=== PATIENT | male | born 1990 | race American Indian/Alaskan Native ===

== ENCOUNTER 2017-06-13 09:29 | Emergency (ER) | payer OTHER ==
[2017-06-13 12:36] VITALS: BP 128/81
--- NOTE | 2017-06-13 13:00 | Emergency Department Report ---
ED Laceration HPI - HPI Chief Complaint: Wound/Laceration Stated Complaint: MOUTH BUSTED OPEN Time Seen by Provider: 06/13/17 12:26 Severity: mild Laceration Symptoms: No Foreign Body Sensation, No Numbness, No Weakness, No Pain Other History: 26-year-old male past medical history anxiety presents with complaint of sustaining laceration below his lower lip while at work today. 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 Patient has a small less than 0.5 cm horizontal laceration below middle aspect of the lower lip. Patient is able to speak in full sentences denies any injuries to any other body parts denies any loss of consciousness associated with the incident. Occurred a few hours ago. Patient's tetanus vaccination is up-to-date as per patient. No active bleeding but there is a small scab at site of laceration. Patient states he had some bleeding inside his mouth as well. ED Review of Systems ROS: Stated complaint: MOUTH BUSTED OPEN Other details as noted in HPI Constitutional: denies: chills, fever Eyes: denies: eye pain, eye discharge, vision change ENT: denies: ear pain, throat pain Respiratory: denies: cough, shortness of breath, wheezing Cardiovascular: denies: chest pain, palpitations Endocrine: no symptoms reported Gastrointestinal: denies: abdominal pain, nausea, diarrhea Genitourinary: denies: urgency, dysuria Musculoskeletal: denies: back pain, joint swelling, arthralgia Skin: denies: rash, lesions Neurological: denies: headache, weakness, paresthesias Psychiatric: denies: anxiety, depression Hematological/Lymphatic: denies: easy bleeding, easy bruising ED Past Medical Hx - Past Medical History Previous Medical History?: No - Surgical History Past Surgical History?: No - Social History Smoking Status: Never Smoker Substance Use Type: None - Medications Home Medications: Home Medications Medication Instructions Recorded Confirmed Last Taken Type Bacitracin Zinc Oint [Antibiotic 1 applicatio TP TID #1 tube 06/13/17 Unknown Rx Oint] Cephalexin [Keflex] 500 mg PO Q12HR #14 cap 06/13/17 Unknown Rx Ibuprofen [Motrin] 600 mg PO Q8H PRN #30 tablet 06/13/17 Unknown Rx Laceration Physical Exam - Exam General: Vital signs noted. No distress. Alert and acting appropriately. Laceration Location: Head (less than 0.5cm laceration, open below lower lip) Full Body Front + Back: 1 - lac here less than 0.5cm, open, gaping Laceration Exam: No Foreign Body, No Exposed Tendon, Vessel, or Nerve, No Tendon Injury, No Normal Distal CMS ED Course Vital Signs 06/13/17 06/13/17 10:02 12:36 Temperature 99.1 F Pulse Rate 59 L 78 Respiratory 16 18 Rate Blood Pressure 102/69 Blood Pressure 128/81 [Right] O2 Sat by Pulse 99 100 Oximetry ED Medical Decision Making - Medical Decision Making A/P: Facial laceration intraoral laceration 1-on clinical exam but likely occurred is that patient's lower teeth/incisors penetrated through the skin below his lip as there is an internal laceration as well. No clinical signs of jaw fracture, patient is speaking in full sentences without any difficulty and no step-off deformity inside oral cavity on inspection 2-patient's tetanus vaccine is up-to-date 3-patient is refusing to allow me to suture the wound externally. I advised him that because the mouth isn't active moving area that sutures are indicated to mitigate any potential infection and advanced wound healing. Patient is adamant that he is afraid of needles and is refusing to allow me to close his laceration. Without suturing this area as wound is open and gaping and penetrating through intraoral mucosa I recommended the patient that he allow me to address the laceration. I informed them I would use local anesthesia. Patient is adamant that he does not want any closure of his wound and would rather treat it topically. This conversation was witnessed by nurse Medina at bedside. Patient signed out AGAINST MEDICAL ADVICE 4- I advised patient to return to the ED for any pus drainage from wound significant swelling of lower lip fevers or chills or any tender redness in area. 5- Motrin when necessary, short course Keflex. I educated patient on local wound care Critical care attestation.: If time is entered above; I have spent that time in minutes in the direct care of this critically ill patient, excluding procedure time. ED Disposition Clinical Impression: Left against medical advice Facial laceration Qualifiers: Encounter type: initial encounter Qualified Code(s): S01.81XA - Laceration without foreign body of other part of head, initial encounter Disposition: TO HOME OR SELFCARE Is pt being admited?: No Does the pt Need Aspirin: No Condition: Stable Instructions: Laceration (ED), Acute Wound Care (ED) Prescriptions: Bacitracin Zinc Oint [Antibiotic Oint] 1 applicatio TP TID #1 tube Cephalexin [Keflex] 500 mg PO Q12HR #14 cap Ibuprofen [Motrin] 600 mg PO Q8H PRN #30 tablet PRN Reason: Pain Referrals: [facility] [Outside] - 3-5 Days [facility] [Outside] - 3-5 Days Time of Disposition: 13:06
[2017-06-13] MEDS ORDERED: TRIPLE ANTIBIOTIC TP ONE (13:13)
== END 2017-06-13 13:32 | disposition home or self-care (01) ==
LOC: ED 09:29
DX: S01.81XA Laceration without foreign body of other part of head, initial encounter (principal); F41.9 Anxiety disorder, unspecified; W22.03XA Walked into furniture, initial encounter; Y93.89 Activity, other specified; Y92.89 Other specified places as the place of occurrence of the external cause; Y99.8 Other external cause status
CPT/HCPCS: 99282; A6250